=== PATIENT | male | born 1940 | race Hispanic/Latino ===

== ENCOUNTER 2018-01-29 09:08 | Day surgery (SDC) | payer MEDICARE, BC ==
[2018-01-29 09:50] VITALS: BMI 23.4
[2018-01-29] MEDS ORDERED: Lactated Ringer's 1,000 ML IV ONE (11:56)
[2018-01-29] MEDS ORDERED: Propofol 10 mg/ml Inj (20 ML) ONE (11:56)
[2018-01-29 13:11] VITALS: TEMP 98
[2018-01-29 13:13] VITALS: BP 148/80; PULSE 62; RESP 18; O2SAT 98
== END 2018-01-29 13:45 | disposition home or self-care (01) ==
LOC: C.ENDO 09:08
PROVIDERS: ATTEND Internal Medicine Gastroenterology
DX: D12.0 Benign neoplasm of cecum (principal); D12.2 Benign neoplasm of ascending colon; D12.3 Benign neoplasm of transverse colon; D12.4 Benign neoplasm of descending colon; K64.8 Other hemorrhoids; K57.90 Diverticulosis of intestine, part unspecified, without perforation or abscess without bleeding
CPT/HCPCS: 45380; 45385; 88305; J2704; J7120